=== PATIENT | male | born 1995 | race Caucasian/White ===

== ENCOUNTER 2018-04-19 21:26 | Emergency (ER) | payer BC ==
[~2018-04-19] VITALS: Ht 182.9 cm; Wt 80.0 kg
[2018-04-19] MEDS ORDERED: LIDOcaine 1% (10mg/ml) 5ml syringe IV ONE (22:35)
[2018-04-19] MEDS ORDERED: lidocaine 1.5% w/epinephrine 1:200,000 10ml vial MPF IJ ONE ×2 (22:45→23:00)
[2018-04-19] MEDS ORDERED: LIDOcaine 1.5% w/epinephrine 1:200,000 5ml ampul IJ ONE (23:15)
[2018-04-19 23:58] VITALS: BP 162/84
== END 2018-04-20 00:01 | disposition home or self-care (01) ==
LOC: ER 21:27
DX: S01.01XA Laceration without foreign body of scalp, initial encounter (principal); Z98.890 Other specified postprocedural states; W22.8XXA Striking against or struck by other objects, initial encounter; Y93.18 Activity, surfing, windsurfing and boogie boarding; Y92.89 Other specified places as the place of occurrence of the external cause; Y99.8 Other external cause status
CPT/HCPCS: 12001; 99283; A6449; J3490; J2001